=== PATIENT | female | born 1945 | race Caucasian/White ===

== ENCOUNTER → 2018-04-06 | Outpatient (CLI) | payer MEDICARE ==
[~2018-04-06] MED LIST: ACET-2743 PO; ASCO500C18 PO; BIOT1TAB8 PO; DIPH25CA85 PO; [UNRECOGNIZED DRUG - OTHER]; [UNRECOGNIZED DRUG - OTHER]
== END | disposition home or self-care (01) ==
LOC: OIH 14:23
PROVIDERS: ATTEND Nurse Practitioner Adult Health
DX: M25.532 Pain in left wrist (principal)
CPT/HCPCS: 73110

== ENCOUNTER 2018-05-19 08:49 | Day surgery (SDC) | payer MEDICARE ==
[~2018-05-19] VITALS: Ht 172.7 cm; Wt 64.0 kg
[~2018-05-19 08:49] MED LIST changes: +SODIUM CHLORIDE 0.9% 1000ML 1,000 ML IV ONE
[2018-05-19 09:35] VITALS: BP 114/64
[2018-05-19] MEDS ORDERED: PROPOFOL 10 MG/ML 20ML VIAL IV ONE (10:20)
[2018-05-19 10:52] VITALS: BP 60/28
== END 2018-05-19 11:35 | disposition home or self-care (01) ==
LOC: DAH 08:49 → ENDO 08:49
PROVIDERS: ATTEND Internal Medicine
DX: D12.4 Benign neoplasm of descending colon (principal); K64.0 First degree hemorrhoids; K29.50 Unspecified chronic gastritis without bleeding; K31.89 Other diseases of stomach and duodenum; D50.9 Iron deficiency anemia, unspecified; Z79.899 Other long term (current) drug therapy; Z98.890 Other specified postprocedural states; Z85.3 Personal history of malignant neoplasm of breast
CPT/HCPCS: 45380; 43239; 88305; 88312; A4606; J2704; J7030

== ENCOUNTER 2018-07-08 09:11 | Day surgery (SDC) | payer MEDICARE ==
[~2018-07-08 09:11] MED LIST changes: -SODIUM CHLORIDE 0.9% 1000ML 1,000 ML IV ONE
[2018-07-08 09:45] VITALS: BP 118/66
[2018-07-08 10:17] LABS: INR 0.99 (0.85-1.15); PARTIAL THROMBOPLASTIN TIME 25.2 SEC (26.3-35.5); PROTHROMBIN TIME 10.4 SEC (9.6-11.6)
[2018-07-08] MEDS ORDERED: LIDOCAINE HCL 1% 10 ML VIAL ONE (10:56)
[2018-07-08 11:40] VITALS: BP 136/74
[2018-07-08 11:55] VITALS: BP 132/74
[2018-07-08 12:10] VITALS: BP 140/63
[2018-07-08 12:30] VITALS: BP 134/75
[2018-07-08 13:20] VITALS: BP 132/74
== END 2018-07-08 13:21 | disposition home or self-care (01) ==
LOC: DAH 09:11
PROVIDERS: ATTEND Internal Medicine Hematology & Oncology
DX: C85.13 Unspecified B-cell lymphoma, intra-abdominal lymph nodes (principal); D64.9 Anemia, unspecified; Z85.3 Personal history of malignant neoplasm of breast; I10 Essential (primary) hypertension; Z98.890 Other specified postprocedural states; Z79.899 Other long term (current) drug therapy
CPT/HCPCS: 36415; 49180; 77012; 85610; 85730; 88184; 88185; 88305; 88341; 88342; 88360; J3490

== ENCOUNTER → 2020-06-19 | Outpatient (CLI) | payer MEDICARE | END | disposition home or self-care (01) | LOC: RAH 09:53 | PROVIDERS: ATTEND Nurse Practitioner Adult Health | DX: J32.0 Chronic maxillary sinusitis (principal) | CPT/HCPCS: 70486 ==